=== PATIENT | male | born 1960 | race Two or more races ===

== ENCOUNTER 2024-08-01 17:14 | Emergency (ER) | payer OTHER ==
[~2024-08-01] VITALS: Ht 172.7 cm; Wt 113.4 kg
[2024-08-01] MEDS ORDERED: ASPIRIN 325 MG TABLET PO ONE (18:00)
[2024-08-01] MEDS ORDERED: ATORVASTATIN CALCIUM 40 MG TABLET PO ONE (18:00)
[2024-08-01] MEDS ORDERED: TICAGRELOR 90 MG TABLET PO ONE (18:00)
[2024-08-01] MEDS ORDERED: NITROGLYCERIN IN 5 % DEXTROSE 250 ML IV SCH (18:00)
[2024-08-01] MEDS ORDERED: 0.9 % SODIUM CHLORIDE 1,000 ML IV SCH (18:00)
[2024-08-01 18:07] LABS: HEMATOCRIT 42.5 % (39.0-48.0); HEMOGLOBIN 14.5 g/dL (13-16.00); MEAN CELL VOLUME 95.7 fL (80.0-100.00); MEAN CORPUSCULAR HEMOGLOBIN 32.7 pg (27.00-32.0); MEAN CORPUSCULAR HGB CONC 34.1 g/dl (32.0-36.0); PLATELET COUNT 292 K/uL (150-450); RED BLOOD COUNT 4.44 M/uL (4.00-6.00); RED CELL DISTRIBUTION WIDTH 12.7 % (11.5-14.5)
[2024-08-01] MEDS ORDERED: ENOXAPARIN SODIUM 80 MG/0.8 ML SYRINGE SUBCUTANEO ONE (19:30)
[2024-08-01] MEDS ORDERED: FAMOTIDINE/PF 20 MG in 0.9 % SODIUM CHLORIDE 8 ML IV PUSH STA (19:43)
[2024-08-01] MEDS ORDERED: HEPARIN SODIUM,PORCINE 5,000 UNITS/ML VIAL IV ONE (19:45)
[2024-08-01 20:00] LABS: ALBUMIN 4.3 gm/dL (3.4-5.0); BILIRUBIN TOTAL 0.66 mg/dL (0.3-1.2); CALCIUM 9.5 mg/dL (8.5-10.1); CREATININE SERUM 1.29 mg/dL (0.70-1.30); GFR 55.72; GLOBULINA 4.9 G/DL (2.4-3.5); POTASSIUM 3.52 mEq/L (3.5-5.1); TOTAL PROTEIN 9.2 gm/dL (6.4-8.2)
[2024-08-01 21:15] VITALS: BP 19/100; O2SAT 98
== END 2024-08-01 21:19 | disposition designated cancer center or children's hospital (05) ==
LOC: ER 17:14
PROVIDERS: General Practice
DX: I21.29 ST elevation (STEMI) myocardial infarction involving other sites (principal)